=== PATIENT | female | born 1960 | race Caucasian/White ===

== ENCOUNTER 2019-06-20 07:32 | Day surgery (SDC) | payer OTHER ==
[2019-06-20] MEDS ORDERED: Propofol 200 MG/20 ML SDV ONE ×2 (07:56→08:42)
[2019-06-20] MEDS ORDERED: fentaNYL 100 MCG/2 ML SDV ONE (07:56)
[2019-06-20] MEDS ORDERED: Midazolam 1 MG/ML 2 ML SDV ONE (07:56)
[2019-06-20] MEDS ORDERED: Sodium Chloride 0.9% 1,000 ML IV SCH (08:00)
--- NOTE | 2019-06-20 12:11 | OR ---
DATE OF PROCEDURE: 06/20/2019 SURGEON: Jeffrey Barclay MD PROCEDURE: Colonoscopy. FINDINGS: 1. Sigmoid colon polyp, approximately 5 mm, completely removed using hot snare. 2. Rectal polyp, approximately 5 mm, completely removed using cold biopsy forceps. COMPLICATIONS: None. BRIDGE ATTACHER: None. ANESTHESIA: MAC. PREOPERATIVE DIAGNOSIS: Family history of colorectal cancer. POSTOPERATIVE DIAGNOSIS: Family history of colorectal cancer. RISKS: Risks, benefits, alternatives, and limitations including, but not limited to infection, bleeding, and perforation were explained to the patient who wished to proceed. PROCEDURE IN DETAIL: The patient was placed in left lateral decubitus position. Digital rectal exam was performed without abnormality. Scope was introduced and advanced atraumatically to the ileocecal valve. Scope was brought back through the ascending, transverse, descending colon, and retroflexed. No evidence of old or new blood. The aforementioned polyps were identified and completely removed. No abnormal bleeding was noted. The patient did have 1 tick with respect to diverticulosis. No abnormalities on retroflexion. The patient tolerated the procedure well. Jeffrey Barclay MD /[id number]
== END 2019-06-20 10:00 | disposition home or self-care (01) ==
LOC: JP.SDS 07:32
PROVIDERS: ATTEND Surgery
DX: Z12.11 Encounter for screening for malignant neoplasm of colon (principal); K63.5 Polyp of colon; F17.200 Nicotine dependence, unspecified, uncomplicated; Z80.0 Family history of malignant neoplasm of digestive organs; Z88.1 Allergy status to other antibiotic agents
CPT/HCPCS: 45380; 45385; J2250; J2704; J3010; J7030; 88305